=== PATIENT | male | born 1960 | race Asian ===

== ENCOUNTER 2016-11-05 19:32 | Emergency (ER) | payer MEDICARE, OTHER ==
[~2016-11-05] VITALS: Ht 165.1 cm; Wt 83.5 kg
[~2016-11-05 19:32] MED LIST: AMLODIPINE BESYL5 MG PO; AMOXICILLIN500 MG ORAL; ASPIRIN-LOW81 MG PO; ATIVAN0.5 MG ORAL; ATORVASTATIN CA20 MG ORAL; CARVEDILOL25 MG PO; COLACE100 MG ORAL; NEPHROVITE1 TAB PO; NORCO1 E1 ORAL; NOVOLOG100 UNIT/3 SUBQ; PROTONIX40 MG ORAL; REGLAN10 MG ORAL; RENAGEL400 MG PO; RENVELA800 MG ORAL; ROCALTROL0.5 MC1 PO; [UNRECOGNIZED DRUG - OTHER] PO
[2016-11-05 20:45] LABS: BASOPHILS % (AUTO) 1.1 % (0.0-2.0); EOSINOPHILS % (AUTO) 4.1 % (0.0-3.0); LYMPHOCYTES % (AUTO) 9.6 % (20.0-45.0); MEAN CORPUSCULAR HEMOGLOBIN 30.9 PG (27.0-31.0); MEAN CORPUSCULAR VOLUME 94 FL (80-99); MEAN PLATELET VOLUME 5.3 FL (6.5-10.1); MONOCYTES % (AUTO) 12.9 % (1.0-10.0); NEUTROPHILS % (AUTO) 72.3 % (45.0-75.0); PLATELET COUNT 155 K/UL (150-450); RED BLOOD COUNT 3.62 M/UL (4.70-6.10); RED CELL DISTRIBUTION WIDTH 12.3 % (11.6-14.8); WHITE BLOOD COUNT 8.4 K/UL (4.8-10.8)
[2016-11-05 21:02] VITALS: BP 145/66
[2016-11-05 21:11] LABS: TROPONIN I < 0.30 ng/mL (<=0.30)
[2016-11-05 21:14] LABS: ALANINE AMINOTRANSFERASE 6 U/L (3-41); ALBUMIN/GLOBULIN RATIO 1.3 (1.0-2.7); ANION GAP 20 (5-15); ASPARTATE AMINO TRANSFERASE 6 U/L (5-40); CALCIUM 9.5 mg/dL (8.6-10.2); CARBON DIOXIDE 25 mEQ/L (20-30); CHLORIDE 97 mEQ/L (98-107); CREATININE 10.3 mg/dL (0.7-1.2); GLOMERULAR FILTRATION RATE 5.2 mL/min (>60); HEMOLYSIS 7; SODIUM 142 mEQ/L (135-145); TOTAL PROTEIN 8.1 g/dL (6.6-8.7)
[2016-11-05 21:25] LABS: CKMB < 1.5 ng/mL (< 6.7)
[2016-11-05] MEDS ORDERED: MECLIZINE HCL25 MG ORAL (22:23)
--- NOTE | 2016-11-05 22:46 | Emergency Room Report ---
History of Present Illness General Chief Complaint: Dizziness Source: Patient, Family Member Present Illness HPI 56-year-old male presents ED for evaluation. States that he's been feeling dizzy with a headache since last night. States that yesterday he went to [facility] and had a revision of his left AV shunt. by Dr Hodge. patient states after surgery he felt dizzy weak. States he went to dialysis today he felt worse after. Denies any chest pain or shortness of breath. Denies any blurry vision, nausea or vomiting. No other aggravating relieving factors. Denies any other associated symptoms Allergies: Coded Allergies: No Known Allergies (Verified , 03/18/08) Patient History Past Medical History: DM, HTN, renal disease, dialysis Past Surgical History: none Pertinent Family History: none Social History: Denies: alcohol use, drug use, smoking Immunizations: UTD Reviewed Nursing Documentation: PMH: Agreed, PSxH: Agreed Nursing Documentation-PMH Hx Cardiac Problems: No Hx Hypertension: Yes Hx Diabetes: Yes Hx Cancer: No Hx Gastrointestinal Problems: No Hx Dialysis: Yes - ESRD,[id number] Hx Neurological Problems: No Review of Systems All Other Systems: negative except mentioned in HPI Physical Exam Vital Signs Date Time Temp Pulse Resp B/P Pulse Ox O2 Delivery O2 Flow Rate FiO2 11/05/16 19:41 98.4 96 16 149/64 99 Room Air Sp02 EP Interpretation: reviewed, normal General Appearance: no apparent distress, alert, GCS 15, non-toxic Head: normocephalic, atraumatic Eyes: bilateral eye PERRL, bilateral eye normal inspection ENT: hearing grossly normal, normal pharynx, no angioedema, normal voice Neck: full range of motion, supple/symm/no masses Respiratory: chest non-tender, lungs clear, normal breath sounds, speaking full sentences Cardiovascular #1: regular rate, rhythm, no edema Cardiovascular #2: 2+ carotid (R), 2+ carotid (L), 2+ radial (R), 2+ radial (L) , 2+ dorsalis pedis (R), 2+ dorsalis pedis (L) Gastrointestinal: normal bowel sounds, non tender, soft, non-distended, no guarding, no rebound Rectal: deferred Genitourinary: normal inspection, no CVA tenderness Musculoskeletal: back normal, gait/station normal, normal range of motion, non- tender, other - palpable bruit L AV Fistula Neurologic: alert, oriented x3, responsive, motor strength/tone normal, sensory intact, speech normal Psychiatric: judgement/insight normal, memory normal, mood/affect normal, no suicidal/homicidal ideation Reflexes: 3+ bicep (R), 3+ bicep (L), 3+ tricep (R), 3+ tricep (L), 3+ knee (R) , 3+ knee (L) Skin: normal color, no rash, warm/dry, well hydrated Lymphatic: no adenopathy Medical Decision Making Diagnostic Impression: Primary Impression: Dizziness Additional Impression: ESRD (end stage renal disease) ER Course Hospital Course 56-year-old male presents ED complaining of dizziness after dialysis today. Differential diagnoses include: hypertensive urgency, hypertensive emergency, arrythmia, AK/ACS Clinical course Patient placed on stretcher. After initial history and physical I ordered labs , EKG, chest x-ray. labs reviewed- all electrolytes normal, troponins negative, no leukocytosis, hemoglobin/hematocrit stable EKG - NSR, no acute changes Chest x-ray-no cardiomegaly, no rib fracture, no pneumothorax, no acute process Reassurance given to patient. Discussed case with PMD Dr. Mancia he agrees patient can be safely discharged to home. Patient agrees I. I feel this is a highly complex case requiring extensive working including EKG/Rhythm strip, Xray/CT/US, Blood/urine lab work, repeat exams while in ED, and administration of strong opiates/narcotics for pain control, admission to hospital or close patient follow up. Diagnosis - Dizziness, ESRD Stable and discharged to home with Rx Meclizine. Instructed to followup with PMD. Return to ED if symptoms recur or worsen Labs Test 11/05/16 20:18 White Blood Count 8.4 K/UL (4.8-10.8) Red Blood Count 3.62 M/UL (4.70-6.10) Hemoglobin 11.2 G/DL (14.2-18.0) Hematocrit 33.9 % (42.0-52.0) Mean Corpuscular Volume 94 FL (80-99) Mean Corpuscular Hemoglobin 30.9 PG (27.0-31.0) Mean Corpuscular Hemoglobin Concent 33.0 G/DL (32.0-36.0) Red Cell Distribution Width 12.3 % (11.6-14.8) Platelet Count 155 K/UL (150-450) Mean Platelet Volume 5.3 FL (6.5-10.1) Neutrophils (%) (Auto) 72.3 % (45.0-75.0) Lymphocytes (%) (Auto) 9.6 % (20.0-45.0) Monocytes (%) (Auto) 12.9 % (1.0-10.0) Eosinophils (%) (Auto) 4.1 % (0.0-3.0) Basophils (%) (Auto) 1.1 % (0.0-2.0) Sodium Level 142 mEQ/L (135-145) Potassium Level 4.0 mEQ/L (3.4-4.9) Chloride Level 97 mEQ/L (98-107) Carbon Dioxide Level 25 mEQ/L (20-30) Anion Gap 20 (5-15) Blood Urea Nitrogen 48 mg/dL (7-23) Creatinine 10.3 mg/dL (0.7-1.2) Estimat Glomerular Filtration Rate 5.2 mL/min (>60) Glucose Level 75 mg/dL (74-106) Calcium Level 9.5 mg/dL (8.6-10.2) Total Bilirubin 0.7 mg/dL (0.0-1.2) Aspartate Amino Transf (AST/SGOT) 6 U/L (5-40) Alanine Aminotransferase (ALT/SGPT) 6 U/L (3-41) Alkaline Phosphatase 84 U/L (40-129) Total Creatine Kinase 104 U/L (38-174) Creatine Kinase MB < 1.5 ng/mL (< 6.7) Creatine Kinase MB Relative Index Troponin I < 0.30 ng/mL (<=0.30) Pro-B-Type Natriuretic Peptide 4721 pg/mL (0-125) Total Protein 8.1 g/dL (6.6-8.7) Albumin 4.7 g/dL (3.5-5.2) Globulin 3.4 g/dL Albumin/Globulin Ratio 1.3 (1.0-2.7) EKG Diagnostic Results Rate: normal Rhythm: NSR ST Segments: no acute changes ASA given to the pt in ED: No Rhythm Strip Diag. Results EP Interpretation: yes Rhythm: NSR, no PVC's, no ectopy Chest X-Ray Diagnostic Results EP Interpretation: Yes Findings: no consolidation, no effusion, no pneumothorax, no acute cardiopulmonary disease Number of Views: 1 Last Vital Signs Date Time Temp Pulse Resp B/P Pulse Ox O2 Delivery O2 Flow Rate FiO2 11/05/16 21:02 92 15 145/66 99 Room Air 11/05/16 19:41 98.4 Status: improved Disposition: HOME, SELF-CARE Condition: Stable Scripts Meclizine Hcl* (MECLIZINE*) 25 Mg Tablet 25 MG ORAL THREE TIMES A DAY, #20 TAB Prov: JUANJO DURAND M.D. 11/05/16 Referrals: KENIA COLES (PCP) Patient Instructions: JUANJO Sanchez M.D. Nov 05, 2016 22:46
[2016-11-05 23:15] VITALS: BP 139/62
--- NOTE | 2016-11-08 08:49 | Diagnostic Imaging Report ---
Indication: Short of breath Technique: XRAY CHEST 1 V. Comparison: 05/13/2013 Findings: Heart is normal in size. The lungs are free of acute infiltrates. There is no pleural fluid. The bones are unremarkable. Impression: Negative chest. No significant change from prior examination.
--- NOTE | 2016-11-08 13:59 | Cardiology Report ---
APPROVED REPORT EKG Measurement Heart [id number] [place] 194P21 [id number] Normal sinus rhythm Normal ECG
== END 2016-11-05 23:21 | disposition home or self-care (01) ==
LOC: EMR 20:34 → CANBEDREQ 22:23 → EMR 23:21
DX: R42 Dizziness and giddiness (principal); I12.0 Hypertensive chronic kidney disease with stage 5 chronic kidney disease or end stage renal disease; E11.22 Type 2 diabetes mellitus with diabetic chronic kidney disease; N18.6 End stage renal disease; Z99.2 Dependence on renal dialysis
CPT/HCPCS: 36415; 71010; 80053; 82550; 82553; 83880; 84484; 85025; 93005; 99283

== ENCOUNTER 2017-07-07 01:25 | Emergency (ER) | payer MEDICARE, OTHER ==
[~2017-07-07] VITALS: Ht 165.1 cm; Wt 83.5 kg
[~2017-07-07 01:25] MED LIST changes: +MECLIZINE HCL25 MG ORAL
--- NOTE | 2017-07-07 01:30 | Emergency Room Report ---
History of Present Illness General Chief Complaint: To Be Triaged Source: Patient, Family Member Present Illness HPI 56YOM with acute substernal non-radiating chest pain, 02/05 at 1am, woke him from sleep Improved pain now without ED intervention Walked into ER Known HTN, DM, CKD on HD //Sat Due for HD later this morning Had stress test chemical 2 days ago - does not know results yet - has F/up appointment in 2 weeks No previous stents, AMI Had normal stress test 2 years ago Allergies: Coded Allergies: No Known Allergies (Verified , 03/18/08) Patient History Past Medical History: DM, HTN, renal disease Past Surgical History: none Pertinent Family History: none Social History: Denies: smoking, alcohol use, drug use Immunizations: UTD Reviewed Nursing Documentation: PMH: Agreed, PSxH: Agreed Nursing Documentation-PMH Hx Cardiac Problems: No Hx Hypertension: Yes Hx Diabetes: Yes Hx Cancer: No Hx Gastrointestinal Problems: No Hx Dialysis: Yes - ESRD,[id number] Hx Neurological Problems: No Review of Systems All Other Systems: negative except mentioned in HPI Physical Exam Sp02 EP Interpretation: reviewed, normal General Appearance: normal inspection, well appearing, no apparent distress, alert, GCS 15, non-toxic Head: normocephalic, atraumatic Eyes: bilateral eye PERRL, bilateral eye EOMI ENT: normal ENT inspection, hearing grossly normal, normal voice Neck: normal inspection, full range of motion, supple, no bony tend Respiratory: normal inspection, lungs clear, normal breath sounds, no rhonchi, no respiratory distress, no retraction, no accessory muscle use, no wheezing, speaking full sentences, chest symmetrical, palpation of chest normal Cardiovascular #1: regular rate, rhythm, no edema Gastrointestinal: normal inspection, normal bowel sounds, non tender, soft, no guarding, no hernia Genitourinary: no CVA tenderness Musculoskeletal: normal inspection, back normal, normal range of motion, Gabbi' s Sign negative Neurologic: normal inspection, alert, oriented x3, responsive, full stack java developer III-XII nml as tested, motor strength/tone normal, speech normal Psychiatric: normal inspection, judgement/insight normal, mood/affect normal Skin: normal inspection, normal color, no rash Medical Decision Making Diagnostic Impression: Primary Impression: Chest pain Qualified Codes: R07.9 - Chest pain, unspecified ER Course 56 YOM with DM, HTN, CKD on HD Substernal chest pain Recent stress test - 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 No ischemia Labs: No leuks. H&H stable. K normal. Elevated SerumCr c/w known CKD Initial trop WNL Second trop also WNL No additional chest pain episodes in ED CXR: normal DC home with advised to call for Stress result and f/up with Cardiology in 2-3 days EKG Diagnostic Results Rate: normal Rhythm: NSR ST Segments: no acute changes ASA given to the pt in ED: No Rhythm Strip Diag. Results EP Interpretation: yes Rhythm: NSR, no PVC's, no ectopy Chest X-Ray Diagnostic Results Chest X-Ray Diagnostic Results : Chest X-Ray Ordered: Yes # of Views/Limited/Complete: 1 View Indication: Chest Pain EP Interpretation: Yes Interpretation: no consolidation, no effusion, no pneumothorax, no acute cardiopulmonary disease Impression: No acute disease Electronically Signed by: Dr Paige Arroyo MD Status: improved Disposition: HOME, SELF-CARE Condition: Improved PAIGE ARROYO M.D. Jul 07, 2017 01:30
[2017-07-07 01:51] LABS: BASOPHILS % (AUTO) 1.2 % (0.0-2.0); EOSINOPHILS % (AUTO) 4.6 % (0.0-3.0); HEMATOCRIT 36.3 % (42.0-52.0); HEMOGLOBIN 11.6 G/DL (14.2-18.0); LYMPHOCYTES % (AUTO) 12.4 % (20.0-45.0); MEAN CORPUSCULAR VOLUME 98 FL (80-99); MONOCYTES % (AUTO) 10.8 % (1.0-10.0); PLATELET COUNT 134 K/UL (150-450); RED BLOOD COUNT 3.69 M/UL (4.70-6.10); RED CELL DISTRIBUTION WIDTH 12.7 % (11.6-14.8); WHITE BLOOD COUNT 10.5 K/UL (4.8-10.8)
[2017-07-07 02:14] LABS: ALANINE AMINOTRANSFERASE 36 U/L (12-78); ALBUMIN 3.7 G/DL (3.4-5.0); ALBUMIN/GLOBULIN RATIO 0.9 (1.0-2.7); ALKALINE PHOSPHATASE 123 U/L (46-116); ANION GAP 18 mmol/L (5-15); ASPARTATE AMINO TRANSFERASE 13 U/L (15-37); BILIRUBIN,TOTAL 0.5 MG/DL (0.2-1.0); BLOOD UREA NITROGEN 90 mg/dL (7-18); CALCIUM 8.7 MG/DL (8.5-10.1); CARBON DIOXIDE 20 MMOL/L (21-32); CHLORIDE 104 MMOL/L (98-107); CREATININE 14.1 MG/DL (0.55-1.30); POTASSIUM 4.9 MMOL/L (3.5-5.1); SODIUM 142 MMOL/L (136-145)
[2017-07-07] MEDS ORDERED: SENSIPAR30 MG ORAL (02:20)
[2017-07-07] MEDS ORDERED: NEPHRO-VITE RX1 EAC1 PO (02:20)
[2017-07-07 02:23] LABS: CKMB 0.8 NG/ML (0.0-3.6); CREATINE KINASE 114 U/L (26-308)
[2017-07-07 02:59] VITALS: BP 147/66
[2017-07-07 04:24] VITALS: BP 159/64
[2017-07-07 05:23] VITALS: BP 159/64
--- NOTE | 2017-07-07 12:12 | Diagnostic Imaging Report ---
Indication: S. pain Comparison: 11/05/16 A single view chest radiograph was obtained. Findings: No definite infiltrate or pulmonary vascular congestion identified. The heart is borderline enlarged. The aorta is mildly enlarged consistent with atherosclerotic vascular disease. The bones are osteopenic. Impression: No acute disease
--- NOTE | 2017-07-17 16:23 | Cardiology Report ---
APPROVED REPORT EKG Measurement Heart [id number] [place] 190P41 [id number] Normal sinus rhythm Normal ECG
--- NOTE | 2017-07-17 16:23 | Cardiology Report ---
APPROVED REPORT EKG Measurement Heart [id number] [place] 190P41 [id number] Normal sinus rhythm Normal ECG
--- NOTE | 2017-07-17 16:23 | Cardiology Report ---
APPROVED REPORT EKG Measurement Heart [id number] [place] 190P41 [id number] Normal sinus rhythm Normal ECG
== END 2017-07-07 05:24 | disposition home or self-care (01) ==
LOC: EMR 01:38
DX: R07.89 Other chest pain (principal); E11.9 Type 2 diabetes mellitus without complications; I12.0 Hypertensive chronic kidney disease with stage 5 chronic kidney disease or end stage renal disease; N18.6 End stage renal disease; Z99.2 Dependence on renal dialysis
CPT/HCPCS: 36415; 71010; 80053; 82550; 82553; 84484; 85025; 93005; 99284

== ENCOUNTER 2017-08-31 17:41 | Emergency (ER) | payer MEDICARE, OTHER ==
[~2017-08-31] VITALS: Ht 165.1 cm; Wt 81.6 kg
[~2017-08-31 17:41] MED LIST changes: +NEPHRO-VITE RX1 EAC1 PO; +SENSIPAR30 MG ORAL
[2017-08-31 19:18] LABS: APPEARANCE,URINE CLOUDY; BILIRUBIN, URINE NEGATIVE (NEGATIVE); COLOR,URINE PALE YELLOW; GLUCOSE, URINE (UA) 2+ (NEGATIVE); KETONES,URINE NEGATIVE (NEGATIVE); LEUKOCYTE ESTERASE ,URINE 3+ (NEGATIVE); NITRITE,URINE NEGATIVE (NEGATIVE); PH,URINE 7 (4.5-8.0); PROTEIN,URINE 4+ (NEGATIVE); UROBILINOGEN,URINE NORMAL MG/DL (0.0-1.0)
[2017-08-31] MEDS ORDERED: CEPHALEXIN500 MG ORAL (19:35)
[2017-08-31] MEDS ORDERED: ACETAMINOPHEN-1 EAC1 ORAL (19:35)
[2017-08-31 19:55] VITALS: BP 149/69
[2017-08-31 19:56] VITALS: BP 157/66
--- NOTE | 2017-08-31 21:19 | Emergency Room Report ---
History of Present Illness General Chief Complaint: Abdominal Pain Source: Patient Present Illness [facility] The patient is a 57-year-old male with end-stage renal failure on dialysis Tuesday presenting for the lower abdominal pain which began this morning. Described as an 8/10 dull ache. Does not radiate. He states that he does produce a little urine still and noticed darkening. Last dialysis was yesterday with no complications. He denies any other symptoms including fever, chills, back pain, chest pain, shortness of breath, constipation, diarrhea, N, V Allergies: Coded Allergies: No Known Allergies (Verified , 03/18/08) Patient History Past Medical History: see triage record Pertinent Family History: none Reviewed Nursing Documentation: PMH: Agreed, PSxH: Agreed Nursing Documentation-PMH Past Medical History: No History, Except For Hx Cardiac Problems: No Hx Hypertension: Yes Hx Diabetes: Yes Hx Cancer: No Hx Gastrointestinal Problems: No Hx Dialysis: Yes - ESRD,[id number] Hx Neurological Problems: No Review of Systems All Other Systems: negative except mentioned in HPI Physical Exam Vital Signs Date Time Temp Pulse Resp B/P (MAP) Pulse Ox O2 Delivery O2 Flow Rate FiO2 08/31/17 18:21 98.2 74 16 157/66 99 Room Air Sp02 EP Interpretation: reviewed, normal General Appearance: no apparent distress, alert, GCS 15, non-toxic Head: normocephalic, atraumatic Eyes: bilateral eye normal inspection, bilateral eye PERRL Gastrointestinal: normal bowel sounds, soft, non-distended, no guarding, no rebound, tenderness - suprapubic Genitourinary: normal inspection, no CVA tenderness Musculoskeletal: back normal, gait/station normal, normal range of motion, non- tender Neurologic: alert, oriented x3, responsive, motor strength/tone normal, sensory intact, speech normal Psychiatric: judgement/insight normal, memory normal, mood/affect normal, no suicidal/homicidal ideation Skin: normal color, no rash, warm/dry, well hydrated Medical Decision Making PA Attestation Dr. Denson is my supervising physician. Patient management was discussed with my supervising physician Diagnostic Impression: Primary Impression: UTI (urinary tract infection) Qualified Codes: N39.0 - Urinary tract infection, site not specified; R31.9 - Hematuria, unspecified ER Course The patient is a 57-year-old male with end-stage renal failure on dialysis Tuesday presenting for the lower abdominal pain which began this morning Differential diagnosis considered but not limited to: UTI, pyelonephritis, SBO, gastroenteritis, among others PE: Afebrile. NAD. Abdomen: Normal appearance. Non distended. No ecchymosis. Normal BS. TTP over suprapubic region only. No McBurney point tenderness. No guarding. No CVA tenderness Urinalysis is consistent with urinary tract infection. There is leukocyte esterase with blood and some bacteria The patient discharged home with a prescription for keflex and is given ER precautions. Laboratory Tests Test 08/31/17 18:50 Urine Color Pale yellow Urine Appearance Cloudy Urine pH 7 (4.5-8.0) Urine Specific [place] 1.005 (1.005-1.035) Urine Protein 4+ (NEGATIVE) H Urine Glucose (UA) 2+ (NEGATIVE) H Urine Ketones Negative (NEGATIVE) Urine Occult Blood 5+ (NEGATIVE) H Urine Nitrite Negative (NEGATIVE) Urine Bilirubin Negative (NEGATIVE) Urine Urobilinogen Normal MG/DL (0.0-1.0) Urine Leukocyte Esterase 3+ (NEGATIVE) H Urine RBC Tntc /HPF (0 - 0) H Urine WBC 5-10 /HPF (0 - 0) H Urine Squamous Epithelial Cells None /LPF (NONE/OCC) Urine Bacteria Occasional /HPF (NONE) Lab Results Impression There is leukocyte esterase with blood and some bacteria Last Vital Signs Date Time Temp Pulse Resp B/P (MAP) Pulse Ox O2 Delivery O2 Flow Rate FiO2 08/31/17 19:56 98.2 16 157/66 99 Room Air 08/31/17 19:55 91 Status: improved Disposition: HOME, SELF-CARE Condition: Improved Scripts Acetaminophen With Codeine (T#3) (TYLENOL #3 TAB*) Y Tab 1 TAB ORAL Q6HR Y for For Pain, #10 TAB Prov: TERZIAN,KG P.A. 08/31/17 Cephalexin* (KEFLEX*) 500 Mg Capsule 500 MG ORAL EVERY 12 HOURS, #14 CAP 0 Refills Prov: TERZIAN,KG P.A. 08/31/17 Referrals: KENIA COLES (PCP) Patient Instructions: Urinary Tract Infection, Hematuria, Adult Additional Instructions: I discussed my findings with the patient. All questions and concerns have been answered. Treatment and medication compliance have been addressed.Please followup with your primary doctor within one week as was instructed. Return to ED if symptoms worsen, new symptoms arise, or if needed for any reason. Patient verbalized understanding of discharge instructions. KG PEREZ Aug 31, 2017 21:19
== END 2017-08-31 20:30 | disposition home or self-care (01) ==
LOC: EMR 19:59
DX: N39.0 Urinary tract infection, site not specified (principal); I12.0 Hypertensive chronic kidney disease with stage 5 chronic kidney disease or end stage renal disease; N18.6 End stage renal disease; Z99.2 Dependence on renal dialysis
CPT/HCPCS: 81003; 99283

== ENCOUNTER 2017-09-11 10:32 | Emergency (ER) | payer MEDICARE, OTHER ==
[~2017-09-11] VITALS: Ht 165.1 cm; Wt 77.1 kg
[~2017-09-11 10:32] MED LIST changes: +ACETAMINOPHEN-1 EAC1 ORAL; +CEPHALEXIN500 MG ORAL
[2017-09-11 10:50] VITALS: BP 127/56
[2017-09-11 11:50] LABS: BASOPHILS % (AUTO) 1.6 % (0.0-2.0); EOSINOPHILS % (AUTO) 7.2 % (0.0-3.0); HEMATOCRIT 34.9 % (42.0-52.0); HEMOGLOBIN 11.6 G/DL (14.2-18.0); LYMPHOCYTES % (AUTO) 20.7 % (20.0-45.0); MEAN CORPUSCULAR VOLUME 100 FL (80-99); MONOCYTES % (AUTO) 11.6 % (1.0-10.0); NEUTROPHILS % (AUTO) 58.9 % (45.0-75.0); PLATELET COUNT 179 K/UL (150-450); RED BLOOD COUNT 3.49 M/UL (4.70-6.10); RED CELL DISTRIBUTION WIDTH 13.3 % (11.6-14.8); WHITE BLOOD COUNT 6.5 K/UL (4.8-10.8)
[2017-09-11 12:17] LABS: APPEARANCE,URINE CLEAR; BILIRUBIN, URINE NEGATIVE (NEGATIVE); COLOR,URINE PALE YELLOW; GLUCOSE, URINE (UA) 3+ (NEGATIVE); KETONES,URINE NEGATIVE (NEGATIVE); LEUKOCYTE ESTERASE ,URINE 3+ (NEGATIVE); NITRITE,URINE NEGATIVE (NEGATIVE); PH,URINE 7 (4.5-8.0); PROTEIN,URINE 4+ (NEGATIVE); UROBILINOGEN,URINE NORMAL MG/DL (0.0-1.0)
[2017-09-11 12:23] LABS: ALANINE AMINOTRANSFERASE 22 U/L (12-78); ALBUMIN 3.7 G/DL (3.4-5.0); ALBUMIN/GLOBULIN RATIO 0.8 (1.0-2.7); ALKALINE PHOSPHATASE 95 U/L (46-116); ANION GAP 16 mmol/L (5-15); ASPARTATE AMINO TRANSFERASE 14 U/L (15-37); BILIRUBIN,TOTAL 0.6 MG/DL (0.2-1.0); BLOOD UREA NITROGEN 74 mg/dL (7-18); CALCIUM 9.1 MG/DL (8.5-10.1); CARBON DIOXIDE 25 MMOL/L (21-32); CHLORIDE 101 MMOL/L (98-107); CREATININE 11.7 MG/DL (0.55-1.30); POTASSIUM 4.9 MMOL/L (3.5-5.1); SODIUM 141 MMOL/L (136-145)
--- NOTE | 2017-09-11 12:24 | Diagnostic Imaging Report ---
Indication: Abdominal pain Technique: CT of the abdomen and pelvis arising automated exposure control without intravenous or oral contrast. CT dose: Total DLP 959.18 mGycm; CTDI vol 16.58 mGy Comparison: 09/22/2015 Findings: Please note that evaluation of the abdominal and pelvic viscera is limited without the use of intravenous and oral contrast. Within these limitations, the following observations are made: Dependent atelectasis noted in the lung bases. Heart is enlarged. Aortic valvular calcifications noted. There is no pericardial effusion. Noncontrast evaluation of the liver, gallbladder, spleen, adrenal glands and pancreas is grossly unremarkable. There is bilateral nonspecific perinephric stranding. There is mild right-sided hydroureteronephrosis. There is a 4 mm stone in the proximal right ureter (series 3 image 100). A 4 mm stone is noted within the upper pole of the right kidney. No urinary tract stone or hydronephrosis noted on the left. There are multiple bilateral well-circumscribed low-attenuation lesions likely representing simple renal cysts. These subcentimeter lesions are not definitively characterized on this exam. The bladder is decompressed and the wall is thickened. This is unchanged in appearance from prior exam. Prostate is not markedly enlarged. There is no evidence of bowel obstruction. No appreciable focal or diffuse abnormal bowel wall thickening or perienteric inflammatory change identified. Appendix is normal. Abdominal aorta is normal in caliber with scattered atherosclerotic calcification. There is no bulky abdominal or pelvic lymphadenopathy. There are multilevel degenerative changes in the spine. No acute osseous abnormality seen. IMPRESSION: 4 mm stone in the proximal right ureter with mild right-sided hydroureteronephrosis. Additional nonobstructing stone in the upper pole the right kidney. Nonspecific bilateral perinephric stranding. Thickening of the bladder possibly reflective of a cystitis. Correlation with urinalysis recommended. Given degree of thickening, follow-up exam after resolution of acute symptoms is recommended to exclude the possibility of underlying mass. Consider urine cytology and/or cystoscopy. Additional findings as above. The CT scanner at [facility] is accredited by the [employer] [place] [employer] and the scans are performed using protocols designed to limit radiation exposure to as low as reasonably achievable to attain images of sufficient resolution adequate for diagnostic evaluation.
[2017-09-11] MEDS ORDERED: FLOMAX0.4 MG ORAL (14:07)
[2017-09-11] MEDS ORDERED: LEVAQUIN500 MG ORAL (14:15)
[2017-09-11] MEDS ORDERED: LEVOFLOXACIN250 MG ORAL (14:17)
[2017-09-11 14:30] VITALS: BP 127/56
[2017-09-11] MEDS ORDERED: Levofloxacin 500mg tab ORAL ONE (14:30)
--- NOTE | 2017-09-11 17:00 | Emergency Room Report ---
History of Present Illness General Chief Complaint: Male Urogenital Problems Source: Patient Present Illness HPI Patient is a 57-year-old male who presented after increased hematuria. Patient gradual onset of symptoms. Patient had prior history of end-stage renal disease. Patient still makes urine. He had noticed increased blood from urinary tract . He had recently been treated for urinary infection with antibiotics Allergies: Coded Allergies: No Known Allergies (Verified , 03/18/08) Patient History Past Medical History: see triage record Reviewed Nursing Documentation: PMH: Agreed, PSxH: Agreed Nursing Documentation-PMH Past Medical History: No History, Except For Hx Cardiac Problems: No Hx Hypertension: Yes Hx Pacemaker: No Hx Asthma: No Hx COPD: No Hx Diabetes: Yes Hx Cancer: No Hx Gastrointestinal Problems: No Hx Dialysis: Yes - ESRD,[id number] Hx Neurological Problems: No Hx Cerebrovascular Accident: No Hx Seizures: No Review of Systems All Other Systems: negative except mentioned in HPI Physical Exam Vital Signs Date Time Temp Pulse Resp B/P (MAP) Pulse Ox O2 Delivery O2 Flow Rate FiO2 09/11/17 10:42 97.9 75 16 130/58 99 Room Air Sp02 EP Interpretation: reviewed, normal General Appearance: normal inspection, well appearing, no apparent distress, alert, GCS 15, non-toxic Head: atraumatic ENT: normal ENT inspection, hearing grossly normal, normal voice Neck: normal inspection, full range of motion, supple, no bony tend Respiratory: normal inspection, lungs clear, normal breath sounds, no respiratory distress, no retraction, no wheezing Cardiovascular #1: regular rate, rhythm, no edema Gastrointestinal: normal inspection, normal bowel sounds, non tender, soft, no guarding, no hernia Genitourinary: no CVA tenderness Musculoskeletal: normal inspection, back normal, normal range of motion Neurologic: normal inspection, alert, responsive, speech normal Psychiatric: normal inspection, judgement/insight normal, mood/affect normal Skin: normal inspection, normal color, no rash Medical Decision Making Diagnostic Impression: Primary Impression: chronic renal failure Additional Impression: Renal colic ER Course The patient presented for hematuria. Differential diagnosis included was not limited to urinary tract infection, renal cell carcinoma, bladder CA pyelonephritis among others.Because of complexity of patient's case laboratory testing and imaging studies were ordered. Laboratory studies showed adequate potassium. Patient was not in any respiratory distress and did not appear to be fluid overloaded. Urinalysis showed evidence of urinary infection and hematuria. CT abdomen pelvis was ordered and showed renal stone. The patient was advised followup with outpatient dialysis as well as his. He scheduled urology appointment. The patient return if he began having increased shortness of breath high fever or other concern Labs Test 09/11/17 11:27 09/11/17 12:11 White Blood Count 6.5 K/UL (4.8-10.8) Red Blood Count 3.49 M/UL (4.70-6.10) Hemoglobin 11.6 G/DL (14.2-18.0) Hematocrit 34.9 % (42.0-52.0) Mean Corpuscular Volume 100 FL (80-99) Mean Corpuscular Hemoglobin 33.3 PG (27.0-31.0) Mean Corpuscular Hemoglobin Concent 33.4 G/DL (32.0-36.0) Red Cell Distribution Width 13.3 % (11.6-14.8) Platelet Count 179 K/UL (150-450) Mean Platelet Volume 5.1 FL (6.5-10.1) Neutrophils (%) (Auto) 58.9 % (45.0-75.0) Lymphocytes (%) (Auto) 20.7 % (20.0-45.0) Monocytes (%) (Auto) 11.6 % (1.0-10.0) Eosinophils (%) (Auto) 7.2 % (0.0-3.0) Basophils (%) (Auto) 1.6 % (0.0-2.0) Prothrombin Time 10.3 SEC (9.30-11.50) Prothromb Time International Ratio 1.0 (0.9-1.1) Activated Partial Thromboplast Time 30 SEC (23-33) Sodium Level 141 MMOL/L (136-145) Potassium Level 4.9 MMOL/L (3.5-5.1) Chloride Level 101 MMOL/L (98-107) Carbon Dioxide Level 25 MMOL/L (21-32) Anion Gap 16 mmol/L (5-15) Blood Urea Nitrogen 74 mg/dL (7-18) Creatinine 11.7 MG/DL (0.55-1.30) Estimat Glomerular Filtration Rate 4.5 mL/min (>60) Glucose Level 271 MG/DL (74-106) Calcium Level 9.1 MG/DL (8.5-10.1) Total Bilirubin 0.6 MG/DL (0.2-1.0) Aspartate Amino Transf (AST/SGOT) 14 U/L (15-37) Alanine Aminotransferase (ALT/SGPT) 22 U/L (12-78) Alkaline Phosphatase 95 U/L (46-116) Total Protein 8.3 G/DL (6.4-8.2) Albumin 3.7 G/DL (3.4-5.0) Globulin 4.6 g/dL Albumin/Globulin Ratio 0.8 (1.0-2.7) Lipase 357 U/L (73-393) Urine Color Pale yellow Urine Appearance Clear Urine pH 7 (4.5-8.0) Urine Specific [place] 1.010 (1.005-1.035) Urine Protein 4+ (NEGATIVE) Urine Glucose (UA) 3+ (NEGATIVE) Urine Ketones Negative (NEGATIVE) Urine Occult Blood 5+ (NEGATIVE) Urine Nitrite Negative (NEGATIVE) Urine Bilirubin Negative (NEGATIVE) Urine Urobilinogen Normal MG/DL (0.0-1.0) Urine Leukocyte Esterase 3+ (NEGATIVE) Urine RBC 30-40 /HPF (0 - 0) Urine WBC 5-10 /HPF (0 - 0) Urine Squamous Epithelial Cells Occasional /LPF Urine Bacteria Occasional /HPF (NONE) Last Vital Signs Date Time Temp Pulse Resp B/P (MAP) Pulse Ox O2 Delivery O2 Flow Rate FiO2 09/11/17 14:30 97.9 84 14 127/56 100 Room Air Status: improved Disposition: HOME, SELF-CARE Condition: Stable Scripts Levofloxacin (LEVOFLOXACIN*) 250 Mg Tablet 250 MG ORAL DAILY, #7 TAB Prov: Huang Ramires 09/11/17 Tamsulosin HCl (Flomax) 0.4 Mg Cap.er.24h 0.4 MG ORAL DAILY for 7 Days, CAP Prov: Huang Ramires 09/11/17 Patient Instructions: Renal Colic Huang Ramires Sep 11, 2017 17:00
== END 2017-09-11 14:30 | disposition home or self-care (01) ==
LOC: EMR 11:00
DX: I12.0 Hypertensive chronic kidney disease with stage 5 chronic kidney disease or end stage renal disease (principal); N18.6 End stage renal disease; Z99.2 Dependence on renal dialysis; N13.2 Hydronephrosis with renal and ureteral calculous obstruction; E11.9 Type 2 diabetes mellitus without complications
CPT/HCPCS: 36415; 74176; 80053; 81003; 83690; 85025; 85610; 85730; 99284

== ENCOUNTER 2018-06-14 08:31 | Outpatient (CLI) | payer MEDICARE, OTHER ==
[~2018-06-14 08:31] MED LIST changes: +FLOMAX0.4 MG ORAL; +LEVAQUIN500 MG ORAL; +LEVOFLOXACIN250 MG ORAL
--- NOTE | 2018-06-14 10:38 | Diagnostic Imaging Report ---
Indication: Flank pain, history of prior right ureteral calculus and urinary stone disease Technique: Spiral acquisitions obtained through the abdomen and pelvis. No oral or IV contrast utilized, per urinary stone protocol. Multiplanar reconstructions were generated. Total dose length product 848.48 mGycm. CTDIvol(s) 16.14 mGy. Dose reduction achieved using automated exposure control Comparison: 09/11/2017 Findings: Multiple ill-defined calcifications are seen within the right renal pelvis and extending somewhat into the proximal right ureter. There are also multiple very ill-defined small calcifications in multiple right renal calyces. These are overall somewhat more numerous than seen previously. There is mild fullness to the right renal pelvis and upper pole calyx, but previously demonstrated hydronephrosis has largely resolved. Previously demonstrated right proximal ureteral calculus, periureteral fat stranding, and proximal hydroureter is likewise no longer evident now distal ureteral calculus or hydroureter. Multiple calcifications are seen in the left renal collecting system. These are more numerous than on the prior exam. Lack of IV contrast limits assessment of the renal parenchyma. There are numerous bilateral renal cysts, overall appearing more numerous than on the previous study. The bladder demonstrates apparent wall thickening. However, it is nondistended, so suspect the apparent wall thickening is an artifact of under distention Lack of IV contrast limits assessment of the other solid organs. The liver, gallbladder, bile ducts, pancreas, spleen, adrenals are all unremarkable. No mesenteric mass or adenopathy. No pelvic mass or adenopathy. There is a tiny fat-containing umbilical hernia. The appendix is normal. No evidence of diverticulosis or diverticulitis. No small bowel distention. No free or loculated intraperitoneal gas or fluid is evident. The distal esophagus, stomach, duodenum are unremarkable. The heart is mildly enlarged. The included lung bases demonstrate minimal atelectasis or scarring on the left. The bones are unremarkable. Impression: Previously demonstrated right proximal ureteral calculus, associated hydronephrosis and hydroureter are no longer evident. There are multiple small calculi within the more proximal right ureter, renal pelvis, and several renal calyces. These are more numerous than on the prior exam, but are apparently nonobstructive given the absence of significant hydronephrosis Multiple nonobstructive left renal calyceal calculi Multiple bilateral renal cysts. Given that these are significantly more numerous than on the prior study, further evaluation with ultrasound is recommended to exclude underlying solid lesion Apparent bladder wall thickening, probably an artifact of under distention Mild cardiomegaly Incidental findings as noted, including minimal left basilar pulmonary atelectasis, tiny fat-containing umbilical hernia The CT scanner at [facility] is accredited by the [employer] and the scans are performed using protocols designed to limit radiation exposure to as low as reasonably achievable to attain images of sufficient resolution adequate for diagnostic evaluation.
== END 2018-06-14 10:31 | disposition home or self-care (01) ==
LOC: CAT 08:31
DX: N20.2 Calculus of kidney with calculus of ureter (principal); N18.9 Chronic kidney disease, unspecified; N28.1 Cyst of kidney, acquired; I51.7 Cardiomegaly
CPT/HCPCS: 74176

== ENCOUNTER 2018-08-19 12:25 | Emergency (ER) | payer MEDICARE, OTHER ==
[~2018-08-19] VITALS: Ht 165.1 cm; Wt 81.6 kg
[2018-08-19] MEDS ORDERED: AZITHROMYC200 MG/5 M ORAL (12:43)
[2018-08-19] MEDS: traMADol 50mg tab ORAL ONE (13:13)
[2018-08-19] MEDS ORDERED: TRAMADOL HCL50 MG ORAL ×2 (14:09→14:13)
[2018-08-19 14:15] VITALS: BP 157/67
[2018-08-19 14:18] VITALS: BP 157/67
--- NOTE | 2018-08-19 15:33 | Emergency Room Report ---
History of Present Illness General Chief Complaint: Toothache Source: Patient Present Illness HPI The patient is a 58 yo M here for dental pain. He went to see dentist this AM and was prescribed azithromycin but no pain medication. Pain has been ongoing for months. He saw a dental surgeon who told him he will need a tooth extraction. He declined having this done initially but is now ready to have this procedure. Pain is a 10/10 dull ache to the bottom central teeth. Worse with chewing. He has used tylenol which minimally helps. He denies N, V, F, chills, pain with swallowing, headache, bleeding. He states he will schedule appointment with dentist for this coming tuesday. Allergies: Coded Allergies: No Known Allergies (Verified , 03/18/08) Patient History Past Medical History: see triage record Pertinent Family History: none Reviewed Nursing Documentation: PMH: Agreed; PSxH: Agreed Nursing Documentation-PMH Past Medical History: No History, Except For Hx Cardiac Problems: No Hx Hypertension: Yes Hx Pacemaker: No Hx Asthma: No Hx COPD: No Hx Diabetes: Yes Hx Cancer: No Hx Gastrointestinal Problems: No Hx Dialysis: Yes - ESRD,[id number] Hx Neurological Problems: No Hx Cerebrovascular Accident: No Hx Seizures: No Review of Systems All Other Systems: negative except mentioned in HPI Physical Exam Vital Signs Date Time Temp Pulse Resp B/P (MAP) Pulse Ox O2 Delivery O2 Flow Rate FiO2 08/19/18 12:35 98.1 91 18 165/68 99 Room Air Sp02 EP Interpretation: reviewed, normal General Appearance: no apparent distress, alert, GCS 15, non-toxic Head: normocephalic, atraumatic Eyes: bilateral eye normal inspection, bilateral eye PERRL ENT: hearing grossly normal, normal pharynx, no angioedema, normal voice, uvula midline, other - TTP over the bottom central teeth without obvious deformity. No inflammation or fluctuance of gums. Neck: full range of motion, supple/symm/no masses Cardiovascular #1: regular rate, rhythm, no edema Musculoskeletal: back normal, gait/station normal, normal range of motion, non- tender Neurologic: alert, oriented x3, responsive, motor strength/tone normal, sensory intact, speech normal Psychiatric: judgement/insight normal, memory normal, mood/affect normal, no suicidal/homicidal ideation Skin: normal color, no rash, warm/dry, well hydrated Lymphatic: no adenopathy Medical Decision Making PA Attestation Dr. Truong is my supervising physician. Patient management was discussed with my supervising physician Diagnostic Impression: Primary Impression: Pain, dental ER Course Patient is a 58-year-old male presenting for dental pain Diagnoses considered but not limited to: Dental caries, dental abscess, toothache, gingivitis PE: Afebrile. NAD TTP over the bottom central teeth without obvious caries. No inflammation or fluctuance of gums. Pt given tramadol with significant reduction in pain. He will be discharged with a limited supply of tramadol and is to F/U with dentist and primary doctor as soon as possible. ER precautions given to him and his . Last Vital Signs Date Time Temp Pulse Resp B/P (MAP) Pulse Ox O2 Delivery O2 Flow Rate FiO2 08/19/18 14:18 98.0 95 20 157/67 95 Room Air Status: improved Disposition: HOME, SELF-CARE Condition: Improved Scripts Tramadol Hcl* (ULTRAM*) 50 Mg Tablet 50 MG ORAL Q12HR PRN for For Pain, #15 TAB 0 Refills Prov: KG PEREZ 08/19/18 Referrals: Lee Wright MD (PCP) Patient Instructions: Dental Pain Additional Instructions: I discussed my findings with the patient. All questions and concerns have been answered. Treatment and medication compliance have been addressed. I advised the patient that they need to follow up with dental surgeon as soon as possible. Return to ED if symptoms worsen, new symptoms arise, or if needed for any reason. Patient verbalized understanding of discharge instructions. KG PEREZ Aug 19, 2018 15:33
== END 2018-08-19 14:18 | disposition home or self-care (01) ==
LOC: EMR 13:00
DX: K08.89 Other specified disorders of teeth and supporting structures (principal); I12.0 Hypertensive chronic kidney disease with stage 5 chronic kidney disease or end stage renal disease; E11.22 Type 2 diabetes mellitus with diabetic chronic kidney disease; N18.6 End stage renal disease; Z99.2 Dependence on renal dialysis
CPT/HCPCS: 99282

== ENCOUNTER 2018-12-13 22:57 | Emergency (ER) | payer MEDICARE, OTHER ==
[~2018-12-13] VITALS: Ht 165.1 cm; Wt 84.4 kg
[~2018-12-13 22:57] MED LIST changes: +AZITHROMYC200 MG/5 M ORAL; +TRAMADOL HCL50 MG ORAL
[2018-12-13] MEDS ORDERED: Morphine Sulfate 4mg/ml Inj (IV USE ONLY) IVP ONE (23:15)
[2018-12-13] MEDS ORDERED: Isovue-300 100ml vial INJ PRN (23:15)
[2018-12-13 23:37] LABS: BASOPHILS % (AUTO) 1.4 % (0.0-2.0); EOSINOPHILS % (AUTO) 7.8 % (0.0-3.0); LYMPHOCYTES % (AUTO) 13.4 % (20.0-45.0); MEAN CORPUSCULAR VOLUME 91 FL (80-99); MONOCYTES % (AUTO) 8.9 % (1.0-10.0); NEUTROPHILS % (AUTO) 68.5 % (45.0-75.0); PLATELET COUNT 156 K/UL (150-450); RED BLOOD COUNT 3.85 M/UL (4.70-6.10); RED CELL DISTRIBUTION WIDTH 13.9 % (11.6-14.8); WHITE BLOOD COUNT 9.6 K/UL (4.8-10.8)
[2018-12-13 23:41] VITALS: BP 142/100
--- NOTE | 2018-12-13 23:44 | NUR ---
ER Nurse Note: Pt came from home c/o left lower abd pain since 1999. Pt stated this is an acute onset with no trauma, ingesting anything toxic or abnormal, no distress. Pt a&ox4, VSS except BP 186/92, 5/10 pain, non radiating. Fistula on the left upper arm. IV established on right upper arm. Morphine given and awaiting CT. Urine sample needed. All labs orders completed per ERMD order. Will continue to montior.
[2018-12-13 23:46] LABS: ANION GAP 12 mmol/L (5-15); BLOOD UREA NITROGEN 61 mg/dL (7-18); CALCIUM 8.3 MG/DL (8.5-10.1); CARBON DIOXIDE 28 MMOL/L (21-32); CHLORIDE 102 MMOL/L (98-107); CREATININE 11.1 MG/DL (0.55-1.30); POTASSIUM 4.7 MMOL/L (3.5-5.1); SODIUM 142 MMOL/L (136-145)
[2018-12-13 23:51] LABS: ALANINE AMINOTRANSFERASE 30 U/L (12-78); ALBUMIN/GLOBULIN RATIO 0.9 (1.0-2.7); ALKALINE PHOSPHATASE 202 U/L (46-116); ASPARTATE AMINO TRANSFERASE 16 U/L (15-37); BILIRUBIN,TOTAL 0.7 MG/DL (0.2-1.0)
[2018-12-14] MEDS ORDERED: CEPHALEXIN500 MG ORAL (00:55)
[2018-12-14] MEDS ORDERED: COLACE100 MG ORAL (00:55)
[2018-12-14 01:05] VITALS: BP 163/69
--- NOTE | 2018-12-14 01:05 | NUR ---
ER Nurse Note: CT completed with results. Pt seen, treated, medically cleared for discharge by ERMD. Discharge instructions and prescriptions given with repeat verbazation by pt. Instructed pt to follow up with primary care provider and dialysis center within one week. Pt a&ox4, VSS, no signs of distress. Pt unable to provided enough urine for anaysis; MD aware. ID band removed. IV removed; site clean and bandaged. Pt left with steady gait, with all belongings via own transportation.
--- NOTE | 2018-12-14 02:48 | Emergency Room Report ---
History of Present Illness General Chief Complaint: Abdominal Pain Source: Patient Present Illness HPI 58-year-old male presents ED for evaluation. Complaining of abdominal pain. Started tonight around 8 PM. Left-sided, sharp, 5 out of 10, nonradiating. Denies nausea or vomiting. Denies fevers chills. History of end-stage renal disease. gets dialysis Tuesday. Denies chest pain or shortness of breath. No other aggravating relieving factors. Denies any other associated symptoms Allergies: Coded Allergies: No Known Allergies (Verified , 03/18/08) Patient History Past Medical History: DM, HTN, renal disease, dialysis Past Surgical History: none Pertinent Family History: none Social History: Denies: smoking, alcohol use, drug use Immunizations: UTD Reviewed Nursing Documentation: PMH: Agreed; PSxH: Agreed Nursing Documentation-PMH Hx Cardiac Problems: No Hx Hypertension: Yes Hx Pacemaker: No Hx Asthma: No Hx COPD: No Hx Diabetes: Yes Hx Cancer: No Hx Gastrointestinal Problems: No Hx Dialysis: Yes - ESRD,[id number] Hx Neurological Problems: No Hx Cerebrovascular Accident: No Hx Seizures: No Review of Systems All Other Systems: negative except mentioned in HPI Physical Exam Vital Signs Date Time Temp Pulse Resp B/P (MAP) Pulse Ox O2 Delivery O2 Flow Rate FiO2 12/13/18 23:02 98.4 84 19 142/100 98 Room Air Sp02 EP Interpretation: reviewed, normal General Appearance: no apparent distress, alert, GCS 15, non-toxic Head: normocephalic, atraumatic Eyes: bilateral eye normal inspection, bilateral eye PERRL ENT: hearing grossly normal, normal pharynx, no angioedema, normal voice Neck: full range of motion, supple/symm/no masses Respiratory: chest non-tender, lungs clear, normal breath sounds, speaking full sentences Cardiovascular #1: regular rate, rhythm, no edema Cardiovascular #2: 2+ carotid (R), 2+ carotid (L), 2+ radial (R), 2+ radial (L) , 2+ dorsalis pedis (R), 2+ dorsalis pedis (L) Gastrointestinal: normal bowel sounds, soft, non-distended, no guarding, no rebound, tenderness Rectal: deferred Genitourinary: normal inspection, no CVA tenderness Musculoskeletal: back normal, gait/station normal, normal range of motion, non- tender Neurologic: alert, oriented x3, responsive, motor strength/tone normal, sensory intact, speech normal Psychiatric: judgement/insight normal, memory normal, mood/affect normal, no suicidal/homicidal ideation Reflexes: 3+ bicep (R), 3+ bicep (L), 3+ tricep (R), 3+ tricep (L), 3+ knee (R) , 3+ knee (L) Skin: normal color, no rash, warm/dry, well hydrated Lymphatic: no adenopathy Medical Decision Making Diagnostic Impression: Primary Impression: UTI (urinary tract infection) Qualified Codes: N39.0 - Urinary tract infection, site not specified Additional Impressions: Constipation Qualified Codes: K59.00 - Constipation, unspecified ESRD (end stage renal disease) ER Course Hospital Course 58-year-old M presents to ED with abdominal pain Differential diagnosis includes-appendicitis, cholecystitis, small bowel obstruction, gastritis, Clinical course Patient placed on stretcher. After initial history and physical I ordered labs , pain medications and CT scan Labs - no leukocytosis, BUN/Cr 61/11.1, LFTs normal CT scan shows bilateral perinephric stranding. no obstructing calculi. significant fecal impaction on left Discussed findings with patient. Discussed findings with PMD ; agrees that patient be safely discharged to home. Patient is due for dialysis in the morning on . He will see patient at his dialysis session I feel this is a highly complex case requiring extensive working including EKG/ Rhythm strip, Xray/CT/US, Blood/urine lab work, repeat exams while in ED, and administration of strong opiates/narcotics for pain control, admission to hospital or close patient follow up. Diagnosis - UTI, constipation, ESRD Stable and discharged to home with Rx Colace, Keflex. Followup with PMD. Return to ED if symptoms recur or worsen Labs Test 12/13/18 23:23 White Blood Count 9.6 K/UL (4.8-10.8) Red Blood Count 3.85 M/UL (4.70-6.10) Hemoglobin 12.0 G/DL (14.2-18.0) Hematocrit 35.0 % (42.0-52.0) Mean Corpuscular Volume 91 FL (80-99) Mean Corpuscular Hemoglobin 31.1 PG (27.0-31.0) Mean Corpuscular Hemoglobin Concent 34.2 G/DL (32.0-36.0) Red Cell Distribution Width 13.9 % (11.6-14.8) Platelet Count 156 K/UL (150-450) Mean Platelet Volume 6.1 FL (6.5-10.1) Neutrophils (%) (Auto) 68.5 % (45.0-75.0) Lymphocytes (%) (Auto) 13.4 % (20.0-45.0) Monocytes (%) (Auto) 8.9 % (1.0-10.0) Eosinophils (%) (Auto) 7.8 % (0.0-3.0) Basophils (%) (Auto) 1.4 % (0.0-2.0) Sodium Level 142 MMOL/L (136-145) Potassium Level 4.7 MMOL/L (3.5-5.1) Chloride Level 102 MMOL/L (98-107) Carbon Dioxide Level 28 MMOL/L (21-32) Anion Gap 12 mmol/L (5-15) Blood Urea Nitrogen 61 mg/dL (7-18) Creatinine 11.1 MG/DL (0.55-1.30) Estimat Glomerular Filtration Rate 4.8 mL/min (>60) Glucose Level 88 MG/DL (74-106) Calcium Level 8.3 MG/DL (8.5-10.1) Total Bilirubin 0.7 MG/DL (0.2-1.0) Aspartate Amino Transf (AST/SGOT) 16 U/L (15-37) Alanine Aminotransferase (ALT/SGPT) 30 U/L (12-78) Alkaline Phosphatase 202 U/L (46-116) Total Protein 8.4 G/DL (6.4-8.2) Albumin 4.0 G/DL (3.4-5.0) Globulin 4.4 g/dL Albumin/Globulin Ratio 0.9 (1.0-2.7) Lipase 301 U/L (73-393) CT/MRI/US Diagnostic Results CT/MRI/US Diagnostic Results : Imaging Test Ordered: CT A/P Impression No change mild cardiomegaly. No change in innumerable bilateral renal cystic lesions. Multiple bilateral intrarenal calculi. Mild dilatation right upper renal collecting system. There are several tiny calcifications in a more distal calculus proximal right ureter measuring 6-6.5 mm. Mild to moderate dilatation left intrarenal collecting system and proximal left ureter secondary to what appear to be 2 small adjacent calculi proximal one third left ureter each measuring 4-4.5 mm. Mild right perinephric and left perinephric stranding. Small amount of left perinephric fluid. The urinary bladder is inadequately distended for accurate evaluation. Moderate enlargement of the prostate gland. The liver, spleen, pancreas and adrenal glands are without significant change and demonstrate no acute findings. Lower GI tract demonstrates no obstruction, focal wall thickening or pneumatosis. Last Vital Signs Date Time Temp Pulse Resp B/P (MAP) Pulse Ox O2 Delivery O2 Flow Rate FiO2 12/14/18 01:05 98.3 81 16 163/69 100 Room Air Status: improved Disposition: HOME, SELF-CARE Condition: Stable Scripts Cephalexin* (KEFLEX*) 500 Mg Capsule 500 MG ORAL EVERY 12 HOURS, #14 CAP 0 Refills Prov: Hima Chatterjee MD 12/14/18 Docusate Sodium* (COLACE*) 100 Mg Capsule 100 MG ORAL THREE TIMES A DAY for 30 Days, CAP Prov: Hima Chatterjee MD 12/14/18 Patient Instructions: Constipation, Adult, [id number] Hima Chatterjee MD Dec 14, 2018 02:48
--- NOTE | 2018-12-14 11:38 | Diagnostic Imaging Report ---
Indication: Abdominal pain Technique: CT of the abdomen and pelvis arising automated exposure control with intravenous or oral contrast. CT dose: Total DLP 964.71 mGycm; CTDI vol 16.14 mGy Comparison: 06/14/2018, 09/11/2017 Findings: Dependent atelectasis noted in the lung bases. Heart is enlarged. Aortic valvular calcifications noted. There is no pericardial effusion. Liver is normal in size and contour. No focal hepatic mass lesion appreciated on this single phase exam. Hepatic veins and portal veins appear gallbladder is unremarkable, without CT evident gallstones or pericholecystic inflammatory changes. No biliary ductal dilatation. Spleen, adrenal glands and pancreas unremarkable. Nonspecific perinephric stranding is again noted, similar to the prior exam. Bilateral renal cystic lesions are noted. 1.4 cm hyperdense cyst is noted on the right. There is some high attenuation foci which may represent intrarenal calculi renal stones. There are some stones in the proximal right ureter and mild dilatation of the upper pole calyx on the right. This is similar to the prior exam. There is also mild dilatation of the left renal collecting system with some suggested stones in the left proximal ureter. Left-sided mild hydronephrosis is new compared to the prior exam, as are the stones in the proximal left ureter. The bladder is decompressed, precluding its evaluation. Prostate borderline enlarged. There is no evidence of bowel obstruction. No appreciable focal or diffuse abnormal bowel wall thickening or perienteric inflammatory change identified. Appendix is normal. Abdominal aorta is normal in caliber with scattered atherosclerotic calcification. There is no bulky abdominal or pelvic lymphadenopathy. There are multilevel degenerative changes in the spine. No acute osseous abnormality seen. Is a small fat-containing umbilical hernia. IMPRESSION: Mild dilatation of the left renal collecting system and left proximal ureter related to small calculi in the proximal left ureter. This is new compared to the prior exam. Multiple stones again noted in the upper pole calyx of the left kidney, similar to the prior exam. Stones in the proximal right ureter with mild associated dilatation of the right proximal ureter as well as multiple stones and is mildly dilated upper pole calyx on the right. These findings are similar to the prior exam. There are multiple small calculi within the more proximal right ureter, renal pelvis, and several renal calyces. These are more numerous than on the prior exam, but are apparently nonobstructive given the absence of significant hydronephrosis Multiple nonobstructive left renal calyceal calculi Multiple bilateral renal cysts. A 1.4 cm hyperdense lesion is noted on the right may represent hemorrhagic or proteinaceous cyst. Mass lesion however is not excluded. Correlation with ultrasound is again recommended. Apparent bladder wall thickening, possibly related to underdistention versus cystitis. Correlation with urinalysis recommended. Cardiomegaly Additional findings as above. The CT scanner at [facility] is accredited by the [employer] and the scans are performed using protocols designed to limit radiation exposure to as low as reasonably achievable to attain images of sufficient resolution adequate for diagnostic evaluation.
== END 2018-12-14 01:05 | disposition home or self-care (01) ==
LOC: EMR 23:18
DX: N39.0 Urinary tract infection, site not specified (principal); K59.00 Constipation, unspecified; I12.0 Hypertensive chronic kidney disease with stage 5 chronic kidney disease or end stage renal disease; E11.22 Type 2 diabetes mellitus with diabetic chronic kidney disease; N18.6 End stage renal disease; Z99.2 Dependence on renal dialysis
CPT/HCPCS: 36415; 74177; 80053; 83690; 85025; 96374; 99284; J2270; Q9967